=== PATIENT | male | born 1950 | race African-American/Black ===

== ENCOUNTER 2017-12-14 16:55 | Emergency (ER) | payer SELFPAY ==
[2017-12-14] MEDS ORDERED: CYCLOBENZAPRINE 10 MG TABLET. (18:03)
[2017-12-14] MEDS ORDERED: HYDROcodone/APAP 5/325MG 1 TAB TABLET (18:03)
[2017-12-14] MEDS: HYDROcodone/APAP 5/325MG 1 TAB TABLET PO (18:06)
[2017-12-14] MEDS: CYCLOBENZAPRINE 10 MG TABLET. PO (18:06)
[2017-12-14] MEDS: cloNIDine HCL 0.1 MG TABLET PO (19:14)
== END 2017-12-14 19:37 | disposition home or self-care (01) ==
LOC: ER 19:37
DX: S16.1XXA Strain of muscle, fascia and tendon at neck level, initial encounter (principal); M47.896 Other spondylosis, lumbar region; M47.892 Other spondylosis, cervical region; I10 Essential (primary) hypertension; E11.9 Type 2 diabetes mellitus without complications; V49.49XA Driver injured in collision with other motor vehicles in traffic accident, initial encounter; Y93.89 Activity, other specified; Y92.488 Other paved roadways as the place of occurrence of the external cause; Y99.8 Other external cause status
CPT/HCPCS: 72125; 72131; 99284